=== PATIENT | male | born 1960 | race Caucasian/White ===

== ENCOUNTER 2022-07-02 16:12 | Outpatient (CLI) | payer BC ==
[2022-07-02 16:29] LABS: BASOPHILS # (AUTO) 0.1 X10'3 (0-0.2); BASOPHILS % (AUTO) 0.8 % (0-1); EOSINOPHILS # (AUTO) 0.2 X10'3 (0-0.9); EOSINOPHILS % (AUTO) 3.2 % (0-6); LYMPHOCYTES # (AUTO) 1.7 X10'3 (1.1-4.8); LYMPHOCYTES % (AUTO) 26.1 % (21-51); MEAN CORPUSCULAR HEMOGLOBIN 30.4 PG (27.0-31.0); MEAN CORPUSCULAR HGB CONC 34.6 g/dL (33.0-36.5); MEAN CORPUSCULAR VOLUME 87.7 FL (78-98); MEAN PLATELET VOLUME 8.2 FL (7.4-10.4); MONOCYTES # (AUTO) 0.7 X10'3 (0-0.9); NEUTROPHILS % (AUTO) 59.9 % (42-75); PRE OP HEMATOCRIT 40.1 % (42.0-52.0); PRE OP HEMOGLOBIN 13.9 g/dL (14.0-17.9); PRE OP PLATELET COUNT 214 X10'3 (140-440); RED BLOOD COUNT 4.57 X10'6 (4.70-6.10); RED CELL DISTRIBUTION WIDTH 12.6 % (11.5-14.5)
[2022-07-02 16:44] LABS: ALBUMIN 3.9 G/DL (3.4-5.0); ALBUMIN/GLOBULIN RATIO 0.9 (1.1-1.5); ALKALINE PHOSPHATASE 64 IU/L (46-116); BLOOD UREA NITROGEN 26 MG/DL (7-18); BUN/CREATININE RATIO 21.1 (5.4-32.0); CALCIUM 9.5 MG/DL (8.5-10.1); CHLORIDE 101 MMOL/L (99-107); CREATININE 1.23 MG/DL (0.60-1.10); PRE OP ALT 27 U/L (30-65); PRE OP ANION GAP 8 (8-16); PRE OP AST 17 U/L (10-37); PRE OP BILIRUB, TOTAL 0.4 MG/DL (0.0-1.0); PRE OP POTASSIUM 4.2 MMOL/L (3.4-5.1); PRE OP SODIUM 136 MMOL/L (135-145); TOTAL CARBON DIOXIDE 26.8 MMOL/L (24-32); TOTAL PROTEIN 8.2 G/DL (6.4-8.2); eGFR 60 ML/MIN
[2022-07-02 17:13] LABS: PRE OP GLUCOSE 291 MG/DL (70-104)
[2022-07-02] MEDS ORDERED: ACET-890 PO (17:44)
[2022-07-02] MEDS ORDERED: NAPR220T67 PO (17:44)
[2022-07-02] MEDS ORDERED: CHLO25TA10 PO (17:44)
[2022-07-02] MEDS ORDERED: ROSU10TA2 PO (17:44)
[2022-07-02] MEDS ORDERED: AMLO1CAP2 PO (17:44)
[2022-07-02 18:22] LABS: HEMOGLOBIN A1C 9.9 % (4.5-6.2)
== END 2022-07-02 23:59 | disposition home or self-care (01) ==
LOC: PRE-OP 16:12 → EDSTATUS 07-09 11:15
PROVIDERS: ATTEND Orthopaedic Surgery
DX: Z01.812 Encounter for preprocedural laboratory examination (principal); M16.12 Unilateral primary osteoarthritis, left hip
CPT/HCPCS: 36415; 80053; 83036; 85025; 86885; 86900; 86901; 87081

== ENCOUNTER 2023-09-11 11:22 | Outpatient (CLI) | payer MEDICAID ==
[~2023-09-11 11:22] MED LIST: ACET-890 PO; AMLO1CAP2 PO; CHLO25TA10 PO; NAPR220T67 PO; ROSU10TA2 PO
== END 2023-09-11 23:59 | disposition home or self-care (01) ==
LOC: RAD 11:22
PROVIDERS: ATTEND Physician Assistant
DX: M16.12 Unilateral primary osteoarthritis, left hip (principal); Z96.641 Presence of right artificial hip joint
CPT/HCPCS: 73502

== ENCOUNTER 2023-11-11 05:38 | Inpatient (IN) | payer MEDICAID ==
[2023-11-05 16:23] LABS: BASOPHILS % (AUTO) 0.8 % (0-1); EOSINOPHILS # (AUTO) 0.1 X10'3 (0-0.9); EOSINOPHILS % (AUTO) 2.5 % (0-6); LYMPHOCYTES # (AUTO) 1.4 X10'3 (1.1-4.8); LYMPHOCYTES % (AUTO) 24.3 % (21-51); MEAN CORPUSCULAR HEMOGLOBIN 29.8 PG (27.0-31.0); MEAN CORPUSCULAR HGB CONC 33.3 g/dL (33.0-36.5); MEAN CORPUSCULAR VOLUME 89.6 FL (78-98); MEAN PLATELET VOLUME 8.8 FL (7.4-10.4); MONOCYTES # (AUTO) 0.6 X10'3 (0-0.9); MONOCYTES % (AUTO) 10.1 % (2-12); NEUTROPHILS # (AUTO) 3.6 X10'3 (1.8-7.7); NEUTROPHILS % (AUTO) 62.3 % (42-75); PRE OP HEMATOCRIT 38.2 % (42.0-52.0); PRE OP HEMOGLOBIN 12.7 g/dL (14.0-17.9); PRE OP PLATELET COUNT 200 X10'3 (140-440); PRE OP WHITE BLOOD COUNT 5.8 10'3 (4.8-10.8); RED BLOOD COUNT 4.27 X10'6 (4.70-6.10); RED CELL DISTRIBUTION WIDTH 13.6 % (11.5-14.5)
[2023-11-05 17:26] LABS: HEMOGLOBIN A1C 6.7 % (4.5-6.2)
[2023-11-05 18:22] LABS: ALBUMIN 3.9 G/DL (3.4-5.0); ALBUMIN/GLOBULIN RATIO 0.9 (1.1-1.5); ALKALINE PHOSPHATASE 42 IU/L (46-116); BLOOD UREA NITROGEN 34 MG/DL (7-18); BUN/CREATININE RATIO 22.8 (10.0-20.0); CALCIUM 10.1 MG/DL (8.5-10.1); CHLORIDE 102 MMOL/L (99-107); CREATININE 1.49 MG/DL (0.60-1.10); PRE OP ALT 28 U/L (30-65); PRE OP ANION GAP 10 (8-16); PRE OP AST 17 U/L (10-37); PRE OP BILIRUB, TOTAL 0.6 MG/DL (0.0-1.0); PRE OP GLUCOSE 114 MG/DL (70-104); PRE OP POTASSIUM 3.7 MMOL/L (3.4-5.1); PRE OP SODIUM 138 MMOL/L (135-145); TOTAL CARBON DIOXIDE 26.1 MMOL/L (24-32); TOTAL PROTEIN 8.1 G/DL (6.4-8.2); eGFR 48 ML/MIN
[~2023-11-11] VITALS: Ht 180.3 cm; Wt 102.4 kg
[2023-11-11] VITALS (24 sets, daily range): BP systolic 91–125; BP diastolic 55–74; PULSE 59–83; RESP 11–20; TEMP 97.4–98.4; O2SAT 95–100
[~2023-11-11 05:38] MED LIST changes: +SEMA1PEN3 SUBCUT
[2023-11-11] MEDS: vancomycin 1,500 MG in NS 300ml IV soln IV ONE (06:24)
[2023-11-11] MEDS: ringers solution, lacted 1,000 ML IV SCH ×2 (06:24→12:16)
[2023-11-11] MEDS: famotidine 20mg tablet PO ONE (06:25)
[2023-11-11] MEDS: cefazolin 2gm/D5W 100mL 100 ML IV ONE (06:25)
[2023-11-11] MEDS ORDERED: midazolam 1 mg/ML 2ml injection ONE (06:58)
[2023-11-11] MEDS: BUPIVACAINE/MELOXICAM 14 ML VIAL IL ONE ×2 (07:30→08:31)
[2023-11-11] MEDS ORDERED: meperidine/PF 25mg/ml syringe IV PRN ×6 (07:35)
[2023-11-11] MEDS ORDERED: labetalol 20mg/4ml (5mg/ml) syringe IV PRN ×2 (07:35)
[2023-11-11] MEDS ORDERED: proCHLORperazine 10 MG/2 ml inj IV PRN ×2 (07:35)
[2023-11-11] MEDS ORDERED: enalaprilat dihydrate 2.5mg/2ml vial IV PRN ×2 (07:35)
[2023-11-11] MEDS ORDERED: ringers solution, lacted 1,000 ML IV SCH (07:35)
[2023-11-11] MEDS ORDERED: ondansetron/PF 4mg/2ml inj IV PRN ×3 (07:35→12:25)
[2023-11-11] MEDS ORDERED: fentaNYL/PF 50MCG/1 ML 2ML syringe ONE ×2 (07:58→10:51)
[2023-11-11] MEDS: fentaNYL/PF 50MCG/1 ML 2ML syringe IV PRN (12:19)
[2023-11-11] MEDS ORDERED: magnesium hydroxide 30ml (MOM) UD suspension PO PRN (12:25)
[2023-11-11] MEDS ORDERED: diphenhydrAMINE 25mg capsule PO PRN ×2 (12:25)
[2023-11-11] MEDS ORDERED: HYDROmorphone inj. 0.5 MG/0.5 ML DISP.SYRIN IV PRN (12:25)
[2023-11-11] MEDS ORDERED: naloxone 0.4 mg/ml inj IV PRN (12:25)
[2023-11-11] MEDS ORDERED: oxyCODONE IR 5mg (immed. release) tablet PO PRN (12:25)
[2023-11-11] MEDS ORDERED: acetaminophen 325mg tablet PO PRN ×2 (12:25→12:50)
[2023-11-11] MEDS ORDERED: bisacodyl 10mg suppository rectal RC PRN (12:25)
[2023-11-11] MEDS: gabapentin 300mg capsule PO SCH (13:00)
[2023-11-11] MEDS: acetaminophen 325mg tablet PO SCH (14:00)
[2023-11-11] MEDS: HYDROmorphone 1 mg/ml syringe IV PRN (14:01)
[2023-11-11] MEDS: potassium Cl 20mEq in NS 1,000 ML IV SCH (17:02)
[2023-11-11] MEDS: ceFAZolin/D5W- 1GM premix 50 ML IV SCH (17:02)
[2023-11-11] MEDS: vancomycin/NS 1 GM ADD-VANTAGE 250 ML IV SCH (19:35)
[2023-11-11] MEDS: oxyCODONE IR 5mg (immed. release) tablet PO PRN (19:36)
[2023-11-11] MEDS: lisinopril 20mg tablet PO SCH (21:00)
[2023-11-11] MEDS: vancomycin 1,000mg inj ONE (21:32)
[2023-11-11] MEDS: fentaNYL/PF 50MCG/1 ML 2ML syringe IV ONE (21:32)
[2023-11-11] MEDS: sennosides 8.6mg tablet PO SCH (21:39)
[2023-11-11] MEDS: atorvastatin 20mg tablet PO SCH (21:40)
[2023-11-12 01:30] VITALS: BP 102/58; PULSE 74; RESP 16; TEMP 98; O2SAT 98
[2023-11-12 06:00] VITALS: BP 114/66; PULSE 69; RESP 16; TEMP 98.4; O2SAT 97
[2023-11-12 08:00] VITALS: RESP 18; O2SAT 99
[2023-11-12] MEDS: enoxaparin 40mg/0.4ml syringe SQ SCH (08:08)
[2023-11-12] MEDS: chlorthalidone 25mg tablet PO SCH (08:10)
[2023-11-12 10:00] VITALS: BP 113/63; PULSE 78; RESP 18; TEMP 97.6; O2SAT 99
[2023-11-12] MEDS ORDERED: celeCOXIB 100mg capsule PO SCH (20:00)
[2023-11-12] MEDS ORDERED: amLODIPine 5mg tablet PO SCH (21:00)
[2023-11-13] MEDS ORDERED: acetaminophen 325mg tablet PO PRN (12:25)
[2023-11-18] MEDS ORDERED: SEMAGLUTIDE 0.5 MG SQ SCH (12:50)
== END 2023-11-12 15:10 | disposition home or self-care (01) | DRG 324 ==
LOC: PAS IN 05:38 → ORTHO 4S 14:04
PROVIDERS: ADMIT Orthopaedic Surgery; ATTEND Orthopaedic Surgery
PROC: 0SRB03A Replacement of Left Hip Joint with Ceramic Synthetic Substitute, Uncemented, Open Approach (ICD-10-PCS; principal; 2023-11-11 07:30)
DX: M16.12 Unilateral primary osteoarthritis, left hip (principal); I10 Essential (primary) hypertension; Z96.641 Presence of right artificial hip joint; Z88.5 Allergy status to narcotic agent; Z88.1 Allergy status to other antibiotic agents; Z88.8 Allergy status to other drugs, medicaments and biological substances; Z79.899 Other long term (current) drug therapy
CPT/HCPCS: 36415; 72170; 80053; 82948; 83036; 85025; 86885; 86900; 86901; 87081; 93005; 97110; 97116; 97161; A4215; A4615; A4618; A6449; A7000; C1776; C9250; G0378; J0690; J1170; J1650; J2250; J3010; J3370; J3480; J7120

== ENCOUNTER 2024-02-22 09:46 | Inpatient (IN) | payer MEDICAID ==
[~2024-02-22] VITALS: Ht 180.3 cm; Wt 102.0 kg
[2024-02-22] VITALS (13 sets, daily range): BP systolic 109–147; BP diastolic 44–76; PULSE 70–88; RESP 12–23; TEMP 97.5–97.8; O2SAT 94–100
[2024-02-22 11:04] LABS: BASOPHILS % (AUTO) 0.3 % (0-1); EOSINOPHILS % (AUTO) 0.1 % (0-6); HEMATOCRIT 42.8 % (42.0-52.0); HEMOGLOBIN 13.9 g/dl (14.0-17.9); LYMPHOCYTES # (AUTO) 0.8 X10'3 (1.1-4.8); LYMPHOCYTES % (AUTO) 5.5 % (21-51); MEAN CORPUSCULAR HEMOGLOBIN 27.3 PG (27.0-31.0); MEAN CORPUSCULAR HGB CONC 32.4 g/dL (33.0-36.5); MEAN CORPUSCULAR VOLUME 84.3 FL (78-98); MONOCYTES # (AUTO) 0.8 X10'3 (0-0.9); MONOCYTES % (AUTO) 6.1 % (2-12); NEUTROPHILS # (AUTO) 12.2 X10'3 (1.8-7.7); PLATELET COUNT 300 X10'3 (140-440); RED BLOOD COUNT 5.08 X10'6 (4.70-6.10); RED CELL DISTRIBUTION WIDTH 16.5 % (11.5-14.5); WHITE BLOOD COUNT 13.8 X10'3 (4.5-11.0)
[2024-02-22] MEDS: normal saline 1000ML IV soln IVB ONE (11:12)
[2024-02-22] MEDS: pantoprazole 40 MG vial IV ONE (11:12)
[2024-02-22] MEDS: ondansetron/PF 4mg/2ml inj IV ONE (11:12)
[2024-02-22 11:16] LABS: ALANINE AMINOTRANSFERASE 23 U/L (12-78); ALBUMIN 3.7 G/DL (3.4-5.0); ALBUMIN/GLOBULIN RATIO 0.8 (1.1-1.5); ALKALINE PHOSPHATASE 59 IU/L (46-116); ANION GAP 8 (8-16); ASPARTATE AMINO TRANSFERASE 16 U/L (10-37); BILIRUBIN,TOTAL 0.9 MG/DL (0.1-1.0); BLOOD UREA NITROGEN 17 MG/DL (7-18); BUN/CREATININE RATIO 11.6 (10.0-20.0); CALCIUM 10.2 MG/DL (8.5-10.1); CHLORIDE 100 MMOL/L (99-107); CREATININE 1.46 MG/DL (0.60-1.10); GLUCOSE 146 MG/DL (70-104); LIPASE 142 U/L (16-77); POTASSIUM 4.2 MMOL/L (3.5-5.1); SODIUM 136 MMOL/L (135-145); TOTAL CARBON DIOXIDE 27.7 MMOL/L (24-32); TOTAL PROTEIN 8.4 G/DL (6.4-8.2); eCRCL 56 ML/MIN; eGFR 49 ML/MIN
[2024-02-22 11:48] LABS: BILIRUBIN,URINE NEGATIVE (Neg); CLARITY,URINE SLIGHTLY CLOUDY (Clear); COLOR,URINE YELLOW (Yellow); GLUCOSE, URINE NEGATIVE (Neg); KETONES,URINE TRACE mg/dl (Neg); LEUKOCYTE ESTERASE ,URINE NEGATIVE (Neg); NITRITES, URINE NEGATIVE (Neg); OCCULT BLOOD,URINE NEGATIVE (Neg); PH,URINE 8.5 (4.8-8.0); PROTEIN,URINE 30 mg/dl (Neg); UROBILINOGEN,URINE 0.2 E.U/dL (0.2-1.0)
[2024-02-22 11:55] LABS: UA COLLECTION TYPE CLN CATCH MIDSTREAM
[2024-02-22 11:57] LABS: AMORPHOUS PHOSPHATES 4+; MUCUS STRANDS FEW /LPF (Neg); SQUAMOUS EPITHELIAL CELL,UR FEW /LPF (FEW)
[2024-02-22 11:58] LABS: RBC,URINE 0-2 /HPF (0-2)
[2024-02-22 11:59] LABS: BACTERIA,URINE FEW /HPF (Neg)
[2024-02-22] MEDS ORDERED: iohexol 300mg/ml 100ml inj. ONE (12:14)
[2024-02-22] MEDS ORDERED: magnesium hydroxide 30ml (MOM) UD suspension PO PRN (15:30)
[2024-02-22] MEDS ORDERED: potassium Cl 40MEQ/1/2NS 520ml 520 ML IV PRN (15:30)
[2024-02-22] MEDS ORDERED: acetaminophen 325mg tablet PO PRN (15:30)
[2024-02-22] MEDS ORDERED: potassium Cl 20 mEq SR tablet PO PRN (15:30)
[2024-02-22] MEDS ORDERED: magnesium Cl slow-release 64mg tablet PO PRN (15:30)
[2024-02-22] MEDS ORDERED: magnesium sulf-water 2g/50mL 50 ML IV PRN (15:30)
[2024-02-22] MEDS ORDERED: mag hydrox/Alum hydrox/simeth 30ml oral suspension PO PRN (15:30)
[2024-02-22] MEDS ORDERED: magnesium sulf-water 4G/100mL 100 ML IV PRN (15:30)
[2024-02-22] MEDS ORDERED: ondansetron/PF 4mg/2ml inj IV PRN ×3 (15:30→19:00)
[2024-02-22] MEDS: HYDROmorphone inj. 0.5 MG/0.5 ML DISP.SYRIN IV ONE (15:49)
[2024-02-22] MEDS: normal saline 1000ml 1,000 ML IV SCH (15:59)
[2024-02-22] MEDS: ketorolac trometh 15mg/ml vial 15 MG/ML ML IV ONE (16:17)
[2024-02-22 16:24] LABS: HEMOGLOBIN A1C 6.1 % (4.5-6.2)
[2024-02-22 16:29] LABS: PRO BRAIN NATRIURETIC PEPTIDE 133 PG/ML (0-125)
[2024-02-22 16:42] LABS: APTT 28 SECONDS (22-32); INR 1.1 INR; PROTHROMBIN TIME 11.2 SECONDS (9.0-12.0)
[2024-02-22] MEDS ORDERED: piperacillin/tazo 4.5gm/100ml 100 ML IV SCH (16:45)
[2024-02-22] MEDS ORDERED: dextrose 50%-water 50ml dispensing syringe IV PRN ×2 (17:00)
[2024-02-22] MEDS ORDERED: DEXTROSE 15 GM of carb/4 tabs (each vial/BOTTLE has 4 tablets) PO PRN ×2 (17:00)
[2024-02-22] MEDS ORDERED: glucagon, human recombinant 1mg kit SUBCUT PRN (17:00)
[2024-02-22] MEDS ORDERED: BUPIVAcaine 2.5mg/ml inj 50ml vial (contains preservative) ONE (17:08)
[2024-02-22] MEDS ORDERED: labetalol 20mg/4ml (5mg/ml) syringe IV PRN (17:15)
[2024-02-22] MEDS ORDERED: meperidine/PF 25mg/ml syringe IV PRN ×2 (17:15)
[2024-02-22] MEDS: ringers solution, lacted 1,000 ML IV SCH (17:15)
[2024-02-22] MEDS ORDERED: proCHLORperazine 10 MG/2 ml inj IV PRN (17:15)
[2024-02-22] MEDS ORDERED: enalaprilat dihydrate 2.5mg/2ml vial IV PRN (17:15)
[2024-02-22] MEDS ORDERED: sevoflurane 250ml liquid IH ONE (17:17)
[2024-02-22] MEDS ORDERED: fentaNYL /PF 50mcg/ml 5ml ampule ONE (17:25)
[2024-02-22] MEDS ORDERED: midazolam 1 mg/ML 2ml injection ONE (17:25)
[2024-02-22] MEDS ORDERED: propofol inj 20 ML IV ONE (17:27)
[2024-02-22] MEDS ORDERED: dexamethasone sod phosphate 4mg/ml inj. ONE (17:36)
[2024-02-22] MEDS ORDERED: rocuronium 10mg/ml inj IV ONE (17:36)
[2024-02-22] MEDS ORDERED: ondansetron/PF 4mg/2ml inj ONE (17:37)
[2024-02-22] MEDS: BUPIVAcaine 2.5mg/ml inj 50ml vial (contains preservative) SQ ONE (17:44)
[2024-02-22] MEDS ORDERED: acetaminophen 1,000mg/100ml IV 100 ML IV ONE (18:07)
[2024-02-22] MEDS ORDERED: naloxone 0.4 mg/ml inj IV PRN (19:00)
[2024-02-22] MEDS: meperidine/PF 25mg/ml syringe IV PRN (19:15)
[2024-02-22] MEDS: INSULIN LISPRO 100 UNIT/ML INSULN.PEN MULTI-DOSE SQ SCH (19:26)
[2024-02-22] MEDS: K and/or MAG REPLACEMENT MC SCH (20:00)
[2024-02-22] MEDS: docusate sod 100mg capsule PO SCH (20:00)
[2024-02-22] MEDS ORDERED: BENAZEPRIL PO SCH (21:00)
[2024-02-22] MEDS ORDERED: AMLODIPINE BESYLATE PO SCH (21:00)
[2024-02-22] MEDS: ROSUVASTATIN CALCIUM 5 MG TABLET PO SCH (21:06)
[2024-02-23] VITALS (13 sets, daily range): BP systolic 119–144; BP diastolic 68–99; PULSE 65–84; RESP 16–20; TEMP 97.1–98.8; O2SAT 94–98
[2024-02-23] MEDS: piperacillin/tazo 3.375gm/50ml 100 ML IV SCH (00:36)
[2024-02-23 06:55] LABS: BASOPHILS % (AUTO) 0.1 % (0-1); EOSINOPHILS % (AUTO) 0 % (0-6); HEMATOCRIT 37.9 % (42.0-52.0); HEMOGLOBIN 12.2 g/dl (14.0-17.9); LYMPHOCYTES # (AUTO) 0.7 X10'3 (1.1-4.8); LYMPHOCYTES % (AUTO) 5.3 % (21-51); MEAN CORPUSCULAR HEMOGLOBIN 27.3 PG (27.0-31.0); MEAN CORPUSCULAR HGB CONC 32.2 g/dL (33.0-36.5); MEAN CORPUSCULAR VOLUME 84.8 FL (78-98); MEAN PLATELET VOLUME 8.3 FL (7.4-10.4); MONOCYTES # (AUTO) 0.3 X10'3 (0-0.9); MONOCYTES % (AUTO) 2.6 % (2-12); NEUTROPHILS # (AUTO) 12.2 X10'3 (1.8-7.7); PLATELET COUNT 234 X10'3 (140-440); RED BLOOD COUNT 4.47 X10'6 (4.70-6.10); RED CELL DISTRIBUTION WIDTH 15.9 % (11.5-14.5); WHITE BLOOD COUNT 13.2 X10'3 (4.5-11.0)
[2024-02-23 07:02] LABS: ALANINE AMINOTRANSFERASE 15 U/L (12-78); ALBUMIN 2.8 G/DL (3.4-5.0); ALBUMIN/GLOBULIN RATIO 0.6 (1.1-1.5); ALKALINE PHOSPHATASE 47 IU/L (46-116); ANION GAP 11 (8-16); ASPARTATE AMINO TRANSFERASE 12 U/L (10-37); BILIRUBIN,TOTAL 0.8 MG/DL (0.1-1.0); BLOOD UREA NITROGEN 19 MG/DL (7-18); BUN/CREATININE RATIO 14.4 (10.0-20.0); CALCIUM 8.9 MG/DL (8.5-10.1); CHLORIDE 102 MMOL/L (99-107); CHOLESTEROL 148 MG/DL (0-200); CREATININE 1.32 MG/DL (0.60-1.10); GLUCOSE 184 MG/DL (70-104); HDL CHOLESTEROL 74 MG/DL (35-60); LDL CHOLESTEROL 66 MG/DL (50-100); PHOSPHORUS 3.3 MG/DL (2.3-4.5); POTASSIUM 4.5 MMOL/L (3.5-5.1); SODIUM 134 MMOL/L (135-145); TOTAL CARBON DIOXIDE 20.6 MMOL/L (24-32); TOTAL PROTEIN 7.3 G/DL (6.4-8.2); TRIGLYCERIDES 55 MG/DL (20-135); eCRCL 62 ML/MIN; eGFR 55 ML/MIN
[2024-02-23] MEDS: pantoprazole 40 MG vial IV SCH (07:48)
[2024-02-23] MEDS: lisinopril 20mg tablet PO SCH (07:49)
[2024-02-23] MEDS: amLODIPine 5mg tablet PO SCH (08:00)
[2024-02-23] MEDS: insulin glargine (Lantus) pen - multi-dose SQ SCH (08:04)
[2024-02-23 08:06] LABS: INR 1.1 INR; PROTHROMBIN TIME 11.9 SECONDS (9.0-12.0)
[2024-02-23] MEDS: acetaminophen 325mg tablet PO ONE (09:26)
[2024-02-23] MEDS: HYDROcodone/acetaminophen 10/325mg tab PO PRN (20:37)
[2024-02-23] MEDS: HYDROmorphone inj. 0.5 MG/0.5 ML DISP.SYRIN IV PRN (23:50)
[2024-02-24] VITALS (8 sets, daily range): BP systolic 118–129; BP diastolic 70–94; PULSE 64–93; RESP 18–20; TEMP 97.2–99; O2SAT 95–98
[2024-02-24 07:35] LABS: PROTHROMBIN TIME 10.5 SECONDS (9.0-12.0)
[2024-02-24 07:36] LABS: BASOPHILS % (AUTO) 0.1 % (0-1); EOSINOPHILS % (AUTO) 0.2 % (0-6); HEMATOCRIT 37.6 % (42.0-52.0); HEMOGLOBIN 12.1 g/dl (14.0-17.9); LYMPHOCYTES # (AUTO) 1.2 X10'3 (1.1-4.8); LYMPHOCYTES % (AUTO) 9.2 % (21-51); MEAN CORPUSCULAR HEMOGLOBIN 27.2 PG (27.0-31.0); MEAN CORPUSCULAR HGB CONC 32.1 g/dL (33.0-36.5); MEAN CORPUSCULAR VOLUME 84.9 FL (78-98); MEAN PLATELET VOLUME 8.5 FL (7.4-10.4); MONOCYTES # (AUTO) 0.8 X10'3 (0-0.9); NEUTROPHILS # (AUTO) 11.3 X10'3 (1.8-7.7); NEUTROPHILS % (AUTO) 84.5 % (42-75); PLATELET COUNT 251 X10'3 (140-440); RED BLOOD COUNT 4.43 X10'6 (4.70-6.10); RED CELL DISTRIBUTION WIDTH 16.1 % (11.5-14.5); WHITE BLOOD COUNT 13.4 X10'3 (4.5-11.0)
[2024-02-24 07:42] LABS: ALANINE AMINOTRANSFERASE 15 U/L (12-78); ALBUMIN 2.6 G/DL (3.4-5.0); ALBUMIN/GLOBULIN RATIO 0.6 (1.1-1.5); ALKALINE PHOSPHATASE 46 IU/L (46-116); ANION GAP 10 (8-16); ASPARTATE AMINO TRANSFERASE 12 U/L (10-37); BILIRUBIN,TOTAL 0.4 MG/DL (0.1-1.0); BLOOD UREA NITROGEN 18 MG/DL (7-18); BUN/CREATININE RATIO 14.3 (10.0-20.0); CALCIUM 8.8 MG/DL (8.5-10.1); CHLORIDE 104 MMOL/L (99-107); CREATININE 1.26 MG/DL (0.60-1.10); GLUCOSE 127 MG/DL (70-104); MAGNESIUM 2.2 MG/DL (1.5-2.4); PHOSPHORUS 2.9 MG/DL (2.3-4.5); POTASSIUM 3.7 MMOL/L (3.5-5.1); SODIUM 138 MMOL/L (135-145); TOTAL CARBON DIOXIDE 24.2 MMOL/L (24-32); TOTAL PROTEIN 6.8 G/DL (6.4-8.2); eCRCL 65 ML/MIN; eGFR 58 ML/MIN
[2024-02-25] VITALS (9 sets, daily range): BP systolic 93–136; BP diastolic 51–88; PULSE 66–85; RESP 12–18; TEMP 97.4–98.6; O2SAT 93–98
[2024-02-25 08:10] LABS: BASOPHILS % (AUTO) 0.6 % (0-1); EOSINOPHILS # (AUTO) 0.2 X10'3 (0-0.9); EOSINOPHILS % (AUTO) 3.4 % (0-6); HEMATOCRIT 34.7 % (42.0-52.0); HEMOGLOBIN 11.2 g/dl (14.0-17.9); LYMPHOCYTES # (AUTO) 1.3 X10'3 (1.1-4.8); LYMPHOCYTES % (AUTO) 18.4 % (21-51); MEAN CORPUSCULAR HEMOGLOBIN 27.4 PG (27.0-31.0); MEAN CORPUSCULAR HGB CONC 32.3 g/dL (33.0-36.5); MEAN CORPUSCULAR VOLUME 84.6 FL (78-98); MEAN PLATELET VOLUME 8.3 FL (7.4-10.4); MONOCYTES # (AUTO) 0.7 X10'3 (0-0.9); MONOCYTES % (AUTO) 9.7 % (2-12); NEUTROPHILS # (AUTO) 4.9 X10'3 (1.8-7.7); NEUTROPHILS % (AUTO) 67.9 % (42-75); PLATELET COUNT 236 X10'3 (140-440); WHITE BLOOD COUNT 7.2 X10'3 (4.5-11.0)
[2024-02-25 08:17] LABS: PROTHROMBIN TIME 10.7 SECONDS (9.0-12.0)
[2024-02-25 08:28] LABS: ALANINE AMINOTRANSFERASE 15 U/L (12-78); ALBUMIN 2.4 G/DL (3.4-5.0); ALBUMIN/GLOBULIN RATIO 0.6 (1.1-1.5); ALKALINE PHOSPHATASE 37 IU/L (46-116); ANION GAP 7 (8-16); ASPARTATE AMINO TRANSFERASE 19 U/L (10-37); BILIRUBIN,TOTAL 0.4 MG/DL (0.1-1.0); BLOOD UREA NITROGEN 20 MG/DL (7-18); CALCIUM 8.2 MG/DL (8.5-10.1); CHLORIDE 102 MMOL/L (99-107); CREATININE 1.54 MG/DL (0.60-1.10); GLUCOSE 126 MG/DL (70-104); MAGNESIUM 1.8 MG/DL (1.5-2.4); PHOSPHORUS 3.4 MG/DL (2.3-4.5); POTASSIUM 3.4 MMOL/L (3.5-5.1); SODIUM 134 MMOL/L (135-145); TOTAL CARBON DIOXIDE 24.8 MMOL/L (24-32); TOTAL PROTEIN 6.2 G/DL (6.4-8.2); eCRCL 53 ML/MIN; eGFR 46 ML/MIN
[2024-02-25] MEDS: potassium Cl 20 mEq SR tablet PO PRN ×2 (09:32→21:21)
[2024-02-25] MEDS: piperacillin/tazo 3.375gm/50ml 50 ML IV SCH (16:44)
[2024-02-25] MEDS ORDERED: magnesium sulf-water 2g/50mL 50 ML IV PRN (18:25)
[2024-02-25] MEDS ORDERED: magnesium Cl slow-release 64mg tablet PO PRN (18:25)
[2024-02-25] MEDS ORDERED: magnesium sulf-water 4G/100mL 100 ML IV PRN (18:25)
[2024-02-25] MEDS ORDERED: potassium Cl 40MEQ/1/2NS 520ml 520 ML IV PRN (18:25)
[2024-02-25] MEDS ORDERED: potassium Cl 20 mEq SR tablet PO PRN (18:25)
[2024-02-25] MEDS: K and/or MAG REPLACEMENT MC SCH (20:00)
[2024-02-25] MEDS: metoclopramide 10mg tablet PO ONE (22:38)
[2024-02-26 02:00] VITALS: BP 115/71; PULSE 71; TEMP 97.5; O2SAT 100
[2024-02-26 06:00] VITALS: BP 125/70; PULSE 71; RESP 15; TEMP 97.3; O2SAT 98
[2024-02-26 07:40] LABS: BASOPHILS % (AUTO) 0.5 % (0-1); EOSINOPHILS # (AUTO) 0.4 X10'3 (0-0.9); EOSINOPHILS % (AUTO) 6.4 % (0-6); HEMATOCRIT 35.3 % (42.0-52.0); HEMOGLOBIN 11.6 g/dl (14.0-17.9); LYMPHOCYTES # (AUTO) 1.4 X10'3 (1.1-4.8); LYMPHOCYTES % (AUTO) 21.4 % (21-51); MEAN CORPUSCULAR HEMOGLOBIN 27.5 PG (27.0-31.0); MEAN CORPUSCULAR HGB CONC 32.7 g/dL (33.0-36.5); MEAN CORPUSCULAR VOLUME 84.1 FL (78-98); MEAN PLATELET VOLUME 8.2 FL (7.4-10.4); MONOCYTES # (AUTO) 0.7 X10'3 (0-0.9); MONOCYTES % (AUTO) 10.2 % (2-12); NEUTROPHILS % (AUTO) 61.5 % (42-75); PLATELET COUNT 270 X10'3 (140-440); WHITE BLOOD COUNT 6.4 X10'3 (4.5-11.0)
[2024-02-26] MEDS: pantoprazole 40mg Tablet.DR PO SCH (07:42)
[2024-02-26 07:43] LABS: PROTHROMBIN TIME 10.7 SECONDS (9.0-12.0)
[2024-02-26 08:00] VITALS: RESP 15; O2SAT 98
[2024-02-26 08:01] LABS: ALANINE AMINOTRANSFERASE 18 U/L (12-78); ALBUMIN 2.4 G/DL (3.4-5.0); ALBUMIN/GLOBULIN RATIO 0.6 (1.1-1.5); ALKALINE PHOSPHATASE 36 IU/L (46-116); ANION GAP 7 (8-16); ASPARTATE AMINO TRANSFERASE 17 U/L (10-37); BILIRUBIN,TOTAL 0.4 MG/DL (0.1-1.0); BLOOD UREA NITROGEN 16 MG/DL (7-18); BUN/CREATININE RATIO 11.6 (10.0-20.0); CALCIUM 8.5 MG/DL (8.5-10.1); CHLORIDE 101 MMOL/L (99-107); CREATININE 1.38 MG/DL (0.60-1.10); GLUCOSE 117 MG/DL (70-104); MAGNESIUM 1.9 MG/DL (1.5-2.4); PHOSPHORUS 3.6 MG/DL (2.3-4.5); POTASSIUM 4.3 MMOL/L (3.5-5.1); SODIUM 134 MMOL/L (135-145); TOTAL CARBON DIOXIDE 26.5 MMOL/L (24-32); TOTAL PROTEIN 6.5 G/DL (6.4-8.2); eCRCL 59 ML/MIN; eGFR 52 ML/MIN
[2024-02-26 18:00] VITALS: BP 138/87; PULSE 93; RESP 20; TEMP 98; O2SAT 98
[2024-02-26 20:00] VITALS: RESP 20; O2SAT 98
[2024-02-26 22:00] VITALS: BP 138/57; PULSE 85; TEMP 97.9; O2SAT 99
[2024-02-27 02:00] VITALS: BP 126/83; PULSE 83; TEMP 98
[2024-02-27 06:00] VITALS: BP 113/78; PULSE 77; RESP 20; TEMP 98; O2SAT 97
[2024-02-27 07:23] LABS: BASOPHILS % (AUTO) 0.6 % (0-1); EOSINOPHILS # (AUTO) 0.4 X10'3 (0-0.9); EOSINOPHILS % (AUTO) 6.4 % (0-6); HEMATOCRIT 34.8 % (42.0-52.0); HEMOGLOBIN 11.5 g/dl (14.0-17.9); LYMPHOCYTES # (AUTO) 1.5 X10'3 (1.1-4.8); LYMPHOCYTES % (AUTO) 21.9 % (21-51); MEAN CORPUSCULAR HEMOGLOBIN 27.8 PG (27.0-31.0); MEAN CORPUSCULAR HGB CONC 33.1 g/dL (33.0-36.5); MEAN PLATELET VOLUME 8.1 FL (7.4-10.4); MONOCYTES # (AUTO) 0.7 X10'3 (0-0.9); MONOCYTES % (AUTO) 10.6 % (2-12); NEUTROPHILS # (AUTO) 4.2 X10'3 (1.8-7.7); NEUTROPHILS % (AUTO) 60.5 % (42-75); PLATELET COUNT 268 X10'3 (140-440); RED BLOOD COUNT 4.14 X10'6 (4.70-6.10); RED CELL DISTRIBUTION WIDTH 16.1 % (11.5-14.5)
[2024-02-27 07:34] LABS: PROTHROMBIN TIME 10.3 SECONDS (9.0-12.0)
[2024-02-27 07:46] LABS: ALANINE AMINOTRANSFERASE 26 U/L (12-78); ALBUMIN 2.5 G/DL (3.4-5.0); ALBUMIN/GLOBULIN RATIO 0.6 (1.1-1.5); ALKALINE PHOSPHATASE 38 IU/L (46-116); ANION GAP 5 (8-16); ASPARTATE AMINO TRANSFERASE 27 U/L (10-37); BILIRUBIN,TOTAL 0.4 MG/DL (0.1-1.0); BLOOD UREA NITROGEN 18 MG/DL (7-18); CALCIUM 8.7 MG/DL (8.5-10.1); CHLORIDE 100 MMOL/L (99-107); GLUCOSE 109 MG/DL (70-104); POTASSIUM 4.1 MMOL/L (3.5-5.1); SODIUM 132 MMOL/L (135-145); TOTAL CARBON DIOXIDE 26.9 MMOL/L (24-32); TOTAL PROTEIN 6.6 G/DL (6.4-8.2); eCRCL 54 ML/MIN; eGFR 47 ML/MIN
[2024-02-27 08:00] VITALS: RESP 20; O2SAT 97
[2024-02-27 08:23] VITALS: BP_SYST 113; PULSE 77
[2024-02-27 08:24] VITALS: RESP 18
[2024-02-27] MEDS ORDERED: HYDR-3965 PO ×2 (10:16→17:27)
[2024-02-27] MEDS ORDERED: METR-349 PO (11:27)
[2024-02-27] MEDS ORDERED: CIPR-259 PO (11:28)
[2024-02-27] MEDS ORDERED: METR375C6 PO (11:28)
== END 2024-02-27 15:08 | disposition home or self-care (01) | DRG 233 ==
LOC: ER 09:47 → ED HOLD 14:35 → ORTHO 4S 20:08 → PCU 3S 02-23 02:15
PROVIDERS: ADMIT Internal Medicine; ATTEND Internal Medicine
PROC: 8E0W4CZ Robotic Assisted Procedure of Trunk Region, Percutaneous Endoscopic Approach (ICD-10-PCS; 2024-02-22)
PROC: 0DTJ4ZZ Resection of Appendix, Percutaneous Endoscopic Approach (ICD-10-PCS; principal; 2024-02-22 17:17)
DX: K35.32 Acute appendicitis with perforation, localized peritonitis, and gangrene, without abscess (principal); E11.22 Type 2 diabetes mellitus with diabetic chronic kidney disease; E78.00 Pure hypercholesterolemia, unspecified; M19.09 Primary osteoarthritis, other specified site; I12.9 Hypertensive chronic kidney disease with stage 1 through stage 4 chronic kidney disease, or unspecified chronic kidney disease; N18.31 Chronic kidney disease, stage 3a; Z88.1 Allergy status to other antibiotic agents; Z88.5 Allergy status to narcotic agent
CPT/HCPCS: 36415; 74177; 80053; 80061; 81001; 82948; 83036; 83605; 83690; 83735; 83880; 84100; 85025; 85610; 85730; 87040; 87081; 87088; 93005; 96374; 96375; 97116; 97161; 99285; A4215; A4314; A4615; A4618; A6258; A6402; A6449; G0378; J0131; J1100; J1171; J1815; J1885; J2175; J2250; J2405; J2470; J2543; J2704; J3010; J3490; J7030; J7120; Q9967